=== PATIENT | female | born 1945 ===

== ENCOUNTER 2018-02-11 06:44 | Day surgery (SDC) | payer MEDICARE, OTHER ==
[~2018-02-11] VITALS: Ht 167.6 cm; Wt 105.5 kg
[~2018-02-11 06:44] MED LIST: AMOX500 PO; ASPI81EC; CAND16; METF500; MOEHYD7.5; MULVITMIND; OMEP10ER; OS-CAL; PRED20 PO; ROSU10TA
[2018-02-11] MEDS ORDERED: LOSA50 PO (07:27)
[2018-02-11] MEDS ORDERED: AMLO10 PO (07:28)
[2018-02-11] MEDS ORDERED: LIRA0.6P (07:28)
[2018-02-11] MEDS ORDERED: SPIR50 PO (07:29)
== END 2018-02-11 08:41 | disposition home or self-care (01) ==
LOC: ORSCSDS 06:44
PROVIDERS: Ophthalmology
PROC: 08RK3JZ Replacement of Left Lens with Synthetic Substitute, Percutaneous Approach (ICD-10-PCS; principal; 2018-02-11 08:30)
DX: H25.12 Age-related nuclear cataract, left eye (principal); E11.22 Type 2 diabetes mellitus with diabetic chronic kidney disease; I12.9 Hypertensive chronic kidney disease with stage 1 through stage 4 chronic kidney disease, or unspecified chronic kidney disease; N18.3 Chronic kidney disease, stage 3 (moderate); Z79.82 Long term (current) use of aspirin; Z79.899 Other long term (current) drug therapy
CPT/HCPCS: 82947; J2250; J3010; J3301; J7040; V2632

== ENCOUNTER → 2018-02-16 | Outpatient (CLI) | payer MEDICARE, OTHER ==
[~2018-02-16] MED LIST changes: +AMLO10 PO; +LIRA0.6P; +LOSA50 PO; +SPIR50 PO
== END ==
LOC: PLD 07:30 → LAB SHORT 07:30
DX: D36.7 Benign neoplasm of other specified sites (principal)
CPT/HCPCS: 88305

== ENCOUNTER → 2018-04-18 | Outpatient (CLI) | payer MEDICARE, OTHER ==
[~2018-04-18] MED LIST changes: +Cefdinir300 MG PO
[2018-04-18 09:57] LABS: Source, Urine Clean Catch
[2018-04-18 10:11] LABS: BASOPHILS ABSOLUTE AUTO 0.01 K/mm3 (0.00-0.23); BASOPHILS PERCENT AUTO 0 % (0-2); EOSINOPHILS ABSOLUTE AUTO 0.01 K/mm3 (0.00-0.68); EOSINOPHILS PERCENT AUTO 0 % (0-6); Hematocrit 36.1 % (33.0-51.0); Hemoglobin 12.4 g/dL (11.5-16.0); IMMATURE GRAN ABSOLUTE AUTO 0.02 K/mm3 (0.00-0.10); IMMATURE GRAN PERCENT AUTO 0 % (0-1); LYMPHOCYTES ABSOLUTE AUTO 0.83 K/mm3 (0.84-5.20); LYMPHOCYTES PERCENT AUTO 16 % (21-46); MONOCYTES ABSOLUTE AUTO 0.38 K/mm3 (0.16-1.47); MONOCYTES PERCENT AUTO 7 % (4-13); Mean Corpuscular HGB 29.6 pg (26.0-34.0); Mean Corpuscular HGB Conc 34.3 g/dL (31.5-36.5); Mean Corpuscular Volume 86 fL (80-100); Mean Platelet Volume 10.5 fL (9.1-12.4); NEUTROPHILS PERCENT AUTO 77 % (41-73); Platelet Count 174 K/mm3 (150-400); RDW Coefficient Variation 12.9 % (11.7-14.2); RDW Standard Deviation 40.4 fL (35.1-46.3); Red Blood Cell Count 4.19 M/mm3 (3.80-5.20); White Blood Cell Count 5.35 K/mm3 (4.00-11.30)
[2018-04-18 10:19] LABS: Albumin/Globulin Ratio 1.1 (0.8-1.8); Bilirubin, Total 0.7 mg/dL (0.1-1.0); Bun/Creatinine Ratio 13.9 (12.0-20.0); Calcium, Blood 8.8 mg/dL (8.5-10.1); Creatinine, Blood 2.44 mg/dL (0.40-1.00); Globulin, Blood 3.7 g/dL (2.2-4.0); Potassium, Blood 4.5 mmol/L (3.5-5.5); Total Protein, Blood 7.7 g/dL (6.4-8.2)
[2018-04-18 10:23] LABS: Bacteria Many /hpf; Squamous Epithelial Cells Few /hpf (Few); White Blood Cells, Urine TNTC /hpf (0-5)
== END | disposition home or self-care (01) ==
LOC: LAB SHORT 09:45 → LAB EV 09:45
PROVIDERS: General Practice
DX: R32 Unspecified urinary incontinence (principal); R50.9 Fever, unspecified
CPT/HCPCS: 80053; 81015; 85025; 87077; 87086; 87186

== ENCOUNTER 2019-02-16 13:37 | Day surgery (SDC) | payer MEDICARE, OTHER ==
[~2019-02-16] VITALS: Ht 167.6 cm; Wt 100.8 kg
== END 2019-02-16 16:30 | disposition home or self-care (01) ==
LOC: ORSCSDS 13:37
PROVIDERS: Surgery
PROC: 0DJD8ZZ Inspection of Lower Intestinal Tract, Via Natural or Artificial Opening Endoscopic (ICD-10-PCS; principal; 2019-02-16 15:15)
DX: R19.4 Change in bowel habit (principal); Z86.010 Personal history of colon polyps; G47.30 Sleep apnea, unspecified; I10 Essential (primary) hypertension; E11.9 Type 2 diabetes mellitus without complications; E66.01 Morbid (severe) obesity due to excess calories; Z68.35 Body mass index [BMI] 35.0-35.9, adult; Z79.899 Other long term (current) drug therapy
CPT/HCPCS: 82947; J2704; J7120

== ENCOUNTER 2019-05-26 08:59 | Day surgery (SDC) | payer MEDICARE, OTHER ==
[~2019-05-26] VITALS: Ht 167.6 cm; Wt 100.4 kg
[~2019-05-26 08:59] MED LIST changes: +Amlodipine Besy10 MG PO; +Ferrous Glucon324 M1 PO; +LIRA0.6P SC; +LOW DOSE ASPIRI81 MG PO; +Norco 10-325 T1 EACH PO; +PRAM.125 PO; +Prilosec Otc20 MG PO; +ROSU10TA PO; +VITAMIN D35000 UNIT PO
== END 2019-05-26 11:45 | disposition home or self-care (01) ==
LOC: ORSCSDS 08:59
PROVIDERS: Ophthalmology
PROC: 08RJ3JZ Replacement of Right Lens with Synthetic Substitute, Percutaneous Approach (ICD-10-PCS; principal; 2019-05-26 10:30)
DX: H25.11 Age-related nuclear cataract, right eye (principal); I10 Essential (primary) hypertension; G47.33 Obstructive sleep apnea (adult) (pediatric); E66.01 Morbid (severe) obesity due to excess calories; Z68.35 Body mass index [BMI] 35.0-35.9, adult; N18.3 Chronic kidney disease, stage 3 (moderate); E11.9 Type 2 diabetes mellitus without complications; Z79.82 Long term (current) use of aspirin; Z79.899 Other long term (current) drug therapy
CPT/HCPCS: 82947; J2001; J2250; J3010; J3301; J7120; V2632

== ENCOUNTER → 2022-10-01 | Outpatient (CLI) | payer MEDICARE, OTHER | LOC: LAB SHORT 16:02 → LAB 16:02 | DX: N39.0 Urinary tract infection, site not specified (principal) | CPT/HCPCS: 87077; 87086; 87186 ==

== ENCOUNTER → 2024-11-18 | Outpatient (CLI) | payer MEDICARE, OTHER ==
[2024-11-18 14:17] LABS: BASOPHILS ABSOLUTE AUTO 0.02 K/mm3 (0.00-0.23); BASOPHILS PERCENT AUTO 0 % (0-2); EOSINOPHILS ABSOLUTE AUTO 0.12 K/mm3 (0.00-0.68); EOSINOPHILS PERCENT AUTO 2 % (0-6); Hematocrit 33.3 % (33.0-51.0); Hemoglobin 11.2 g/dL (11.5-16.0); IMMATURE GRAN ABSOLUTE AUTO 0.01 K/mm3 (0.00-0.10); IMMATURE GRAN PERCENT AUTO 0 % (0-1); LYMPHOCYTES ABSOLUTE AUTO 1.53 K/mm3 (0.84-5.20); LYMPHOCYTES PERCENT AUTO 29 % (21-46); MONOCYTES ABSOLUTE AUTO 0.41 K/mm3 (0.16-1.47); MONOCYTES PERCENT AUTO 8 % (4-13); Mean Corpuscular HGB 30.4 pg (26.0-34.0); Mean Corpuscular HGB Conc 33.6 g/dL (31.5-36.5); Mean Corpuscular Volume 90 fL (80-100); Mean Platelet Volume 10.1 fL (9.1-12.4); NEUTROPHILS ABSOLUTE AUTO 3.14 K/mm3 (1.96-9.15); NEUTROPHILS PERCENT AUTO 60 % (41-73); Platelet Count 180 K/mm3 (150-400); RDW Coefficient Variation 13.3 % (11.7-14.2); RDW Standard Deviation 44.4 fL (35.1-46.3); Red Blood Cell Count 3.69 M/mm3 (3.80-5.20); White Blood Cell Count 5.23 K/mm3 (4.00-11.30)
[2024-11-18 14:23] LABS: Bun/Creatinine Ratio 20.8 (12.0-20.0); Calcium, Blood 9.4 mg/dL (8.5-10.1); Creatinine, Blood 2.79 mg/dL (0.40-1.00); Potassium, Blood 5.1 mmol/L (3.5-5.5); Uric Acid, Blood 9.2 mg/dL (2.6-6.0)
== END | disposition home or self-care (01) ==
LOC: LAB SHORT 14:12
PROVIDERS: Chiropractor
DX: M79.89 Other specified soft tissue disorders (principal)
CPT/HCPCS: 80048; 84550; 85025